=== PATIENT | male | born 1980 | race Caucasian/White ===

== ENCOUNTER 2019-06-21 21:44 | Emergency (ER) | payer BC ==
--- NOTE | 2019-06-22 | RAD ---
RIGHT WRIST THREE VIEWS: Date: 06-21-19 FINDINGS: No fracture was seen. The carpal bones appear normal. The distal radius and ulna appear intact. IMPRESSION: No acute finding. POS: HOME
== END 2019-06-21 22:55 | disposition home or self-care (01) ==
LOC: BURERS 21:44
DX: S63.501A Unspecified sprain of right wrist, initial encounter (principal); S29.012A Strain of muscle and tendon of back wall of thorax, initial encounter; F32.9 Major depressive disorder, single episode, unspecified; Z79.01 Long term (current) use of anticoagulants; Z79.899 Other long term (current) drug therapy; W19.XXXA Unspecified fall, initial encounter

== ENCOUNTER 2021-04-16 16:08 | Emergency (ER) | payer BC ==
[~2021-04-16 16:08] MED LIST: Iopamidol 370 76% 100 ML VIAL ONE
[2021-04-16] MEDS ORDERED: Morphine 4 MG/ML VIAL ONE (16:36)
[2021-04-16] MEDS ORDERED: Ondansetron PF 4 MG/2 ML Vial ONE (16:37)
[2021-04-16 16:38] LABS: #Basophils 0.1 thou/uL (0.0-0.2); #Eosinphils 0.1 thou/uL (0.0-0.7); #Lymphocytes 1.7 thou/uL (1.20-3.40); #Monocytes 0.8 thou/uL (0.11-0.59); #Neutrophils 8.9 thou/uL (1.40-6.50); %Basophils 0.7 % (0.0-1.0); %Eosinophils 0.7 % (0.0-10.0); %Lymphocytes 14.6 % (21.0-51.0); Hemoglobin 16.9 g/dL (14.0-18.0); Mean Corpuscular HGB CONC 32.8 g/dL (32.0-36.0); Mean Corpuscular Hemoglobin 29.3 pg (27.0-31.0); Mean Corpuscular Volume 89.2 fL (78.0-98.0); Mean Platelet Volume 7.8 fL (7.4-10.4); Platelet Count 265 thou/uL (130-400); RBC Distribution Width 12.7 % (11.5-14.5); Red Blood Cell (RBC) Count 5.78 mill/uL (4.70-6.10); White Blood Cell (WBC) Count 11.5 thou/uL (4.8-10.8)
[2021-04-16 16:45] LABS: INR-International Normal Ratio 3.2; Prothrombin Time 32.9 sec (12.0-14.7)
[2021-04-16 16:48] LABS: Bilirubin Small (Negative); Blood, Urine Large (Negative); Clarity Clear (Clear); Glucose, Urine (Dipstick) Negative (Negative); Ketone, Urine 15 mg/dL (Negative); Leukocyte Negative (Negative); Nitrite Negative (Negative); Protein, Urine (Dipstick) 100 mg/dL (Neg-Trace); Urobilinogen 0.2 mg/dL (Less than 2); pH, Urine 5.5 (5.0-9.0)
[2021-04-16 16:53] LABS: Specific Gravity, Urine 1.023 (1.002-1.036)
[2021-04-16 16:54] LABS: ALT (SGPT) 24 U/L (8-55); AST (SGOT) 15 U/L (5-34); Albumin 4.3 g/dL (3.5-5.0); Alkaline Phosphatase 104 U/L (40-110); Anion Gap 13 mmol/L (10-20); BUN (Urea Nitrogen) 10 mg/dL (8.9-20.6); Bilirubin, Total 0.8 mg/dL (0.2-1.2); Calc. Creatinine Clearance 0 mL/min (70-130); Calcium 9.5 mg/dL (7.8-10.44); Carbon Dioxide 31 mmol/L (22-29); Chloride 102 mmol/L (98-107); Globulin 3.5 g/dL (2.4-3.5); Glucose 119 mg/dL (70-105); Lipase 16 U/L (8-78); Potassium 4.1 mmol/L (3.5-5.1); Protein, Total 7.8 g/dL (6.0-8.3); Sodium 142 mmol/L (136-145)
[2021-04-16 17:15] LABS: Bacteria/HPF Rare-Few HPF (None Seen); Mucous/LPF 1+ LPF (<2+); RBC/HPF 21-50 HPF (0-3); WBC/HPF 0-3 HPF (0-3)
[2021-04-16] MEDS ORDERED: Ketorolac Tromethamine 30 MG/ML VIAL ONE (18:06)
== END 2021-04-16 18:18 | disposition short-term general hospital (02) ==
LOC: BURERS 16:08
DX: N50.89 Other specified disorders of the male genital organs (principal); R10.12 Left upper quadrant pain; R10.32 Left lower quadrant pain; R11.2 Nausea with vomiting, unspecified; Z86.73 Personal history of transient ischemic attack (TIA), and cerebral infarction without residual deficits; Z79.01 Long term (current) use of anticoagulants; Z79.899 Other long term (current) drug therapy
CPT/HCPCS: 74177; 80053; 81003; 81015; 83690; 85025; 85610; 96374; 96375; J1885; J2270; J2405; Q9967

== ENCOUNTER 2021-05-20 18:02 | Inpatient (IN) | payer BC ==
[2021-05-20] MEDS ORDERED: Acetaminophen 500 MG TAB ONE (18:44)
[2021-05-20] MEDS ORDERED: Morphine 4 MG/ML VIAL ONE (18:44)
[2021-05-20 19:09] LABS: ALT (SGPT) 24 U/L (8-55); AST (SGOT) 16 U/L (5-34); Alkaline Phosphatase 116 U/L (40-110); Anion Gap 17 mmol/L (10-20); BUN (Urea Nitrogen) 13 mg/dL (8.9-20.6); Bilirubin, Total 0.2 mg/dL (0.2-1.2); Calc. Creatinine Clearance 0 mL/min (70-130); Calcium 9.1 mg/dL (7.8-10.44); Carbon Dioxide 24 mmol/L (22-29); Chloride 101 mmol/L (98-107); Globulin 3.2 g/dL (2.4-3.5); Glucose 91 mg/dL (70-105); Potassium 3.9 mmol/L (3.5-5.1); Protein, Total 7.2 g/dL (6.0-8.3); Sodium 138 mmol/L (136-145)
[2021-05-20 19:25] LABS: Hemoglobin 14.7 g/dL (14.0-18.0); Mean Corpuscular HGB CONC 32.8 g/dL (32.0-36.0); Mean Corpuscular Hemoglobin 29.6 pg (27.0-31.0); Mean Corpuscular Volume 90.3 fL (78.0-98.0); Mean Platelet Volume 7.5 fL (7.4-10.4); Platelet Count 273 thou/uL (130-400); RBC Distribution Width 12.9 % (11.5-14.5); Red Blood Cell (RBC) Count 4.96 mill/uL (4.70-6.10)
[2021-05-20 19:52] LABS: Band 7 % (5-11); Eosinophils 1 % (0-10); Lymphocytes 11 % (21-51); MDiff Complete? YES; Monocytes 6 % (0-10); Neutrophil 74 % (42-75); Platelet Morphology Comment Appears Adequate; RBC Morphology Normal
[2021-05-20 20:26] VITALS: BMI 30.4
[2021-05-20] MEDS ORDERED: Morphine 4 MG/ML VIAL SLOW IVP PRN ×2 (20:54→21:37)
[2021-05-20] MEDS ORDERED: Piperacillin/Tazobactam 3.375 GM in Sodium Chloride 0.9% 100 ML IVPB SCH (21:00)
[2021-05-20] MEDS ORDERED: Sodium Chloride 0.9% 1,000 ML IV SCH (21:00)
[2021-05-20] MEDS ORDERED: Ondansetron ODT 4 MG TAB PO PRN (21:39)
[2021-05-20] MEDS ORDERED: Acetaminophen 325 MG TAB PO PRN (21:39)
[2021-05-20] MEDS: Sodium Chloride 0.9% 1,000 ML IV SCH (21:45)
[2021-05-20] MEDS: Piperacillin/Tazobactam 3.375 GM in Sodium Chloride 0.9% 100 ML IVPB SCH (21:51)
[2021-05-20 22:05] LABS: Lactic Acid 0.7 mmol/L (0.5-2.2)
[2021-05-21] MEDS: Vancomycin HCl 750 MG in Sodium Chloride 0.9% 250 ML 250 ML IVPB SCH ×4 (02:14→15:10)
[2021-05-21] MEDS: Sodium Chloride 0.9% 1,000 ML IV SCH (03:28)
[2021-05-21 04:00] LABS: SARS-CoV-2 NAA Rapid Test Not Detected (NotDetected)
[2021-05-21] MEDS: Piperacillin/Tazobactam 3.375 GM in Sodium Chloride 0.9% 100 ML IVPB SCH ×2 (05:48→17:12)
[2021-05-21] MEDS ORDERED: Piperacillin/Tazobactam 3.375 GM in Sodium Chloride 0.9% 100 ML IVPB SCH (06:00)
[2021-05-21] MEDS ORDERED: Vancomycin HCl 1 GM in Sodium Chloride 0.9% 250 ML 250 ML IVPB SCH (06:00)
[2021-05-21 08:08] LABS: Prothrombin Time 47.3 sec (12.0-14.7)
[2021-05-21 08:25] LABS: INR-International Normal Ratio 5.1
[2021-05-21] MEDS ORDERED: Warfarin Sodium 3.75 MG HALF.TAB PO SCH (09:00)
[2021-05-21] MEDS: Gabapentin 300 MG CAP PO SCH ×2 (09:18→21:04)
[2021-05-21] MEDS: HYDROcodone/Acetaminophen 5/325 mg Tablet PO PRN ×3 (09:21→21:06)
[2021-05-22] MEDS: Piperacillin/Tazobactam 3.375 GM in Sodium Chloride 0.9% 100 ML IVPB SCH ×4 (00:25→23:05)
[2021-05-22] MEDS: HYDROcodone/Acetaminophen 5/325 mg Tablet PO PRN ×3 (02:16→23:13)
[2021-05-22] MEDS: Vancomycin HCl 750 MG in Sodium Chloride 0.9% 250 ML 250 ML IVPB SCH ×4 (02:17→16:11)
[2021-05-22 05:49] LABS: #Basophils 0.1 thou/uL (0.0-0.2); #Eosinphils 0.3 thou/uL (0.0-0.7); #Lymphocytes 1.7 thou/uL (1.20-3.40); #Monocytes 0.5 thou/uL (0.11-0.59); #Neutrophils 4.8 thou/uL (1.40-6.50); %Basophils 0.9 % (0.0-1.0); %Eosinophils 3.5 % (0.0-10.0); %Lymphocytes 23.7 % (21.0-51.0); %Monocytes 7.1 % (0.0-10.0); %Neutrophils 64.8 % (42.0-75.0); Hemoglobin 13.1 g/dL (14.0-18.0); Mean Corpuscular HGB CONC 33.4 g/dL (32.0-36.0); Mean Corpuscular Hemoglobin 29.9 pg (27.0-31.0); Mean Corpuscular Volume 89.4 fL (78.0-98.0); Mean Platelet Volume 7.2 fL (7.4-10.4); Platelet Count 247 thou/uL (130-400); RBC Distribution Width 12.8 % (11.5-14.5); Red Blood Cell (RBC) Count 4.37 mill/uL (4.70-6.10); White Blood Cell (WBC) Count 7.3 thou/uL (4.8-10.8)
[2021-05-22 05:58] LABS: Anion Gap 9 mmol/L (10-20); BUN (Urea Nitrogen) 8 mg/dL (8.9-20.6); Calc. Creatinine Clearance 149 mL/min (70-130); Calcium 8.8 mg/dL (7.8-10.44); Carbon Dioxide 26 mmol/L (22-29); Chloride 109 mmol/L (98-107); Glucose 121 mg/dL (70-105); Potassium 3.9 mmol/L (3.5-5.1); Sodium 140 mmol/L (136-145)
[2021-05-22] MEDS: Gabapentin 300 MG CAP PO SCH ×2 (08:29→20:43)
[2021-05-22 13:16] LABS: Vancomycin, Trough 14.4 ug/mL
[2021-05-22] MEDS: Morphine 4 MG/ML VIAL SLOW IVP SCH (13:32)
[2021-05-23] MEDS: Vancomycin HCl 750 MG in Sodium Chloride 0.9% 250 ML 250 ML IVPB SCH ×2 (02:11)
[2021-05-23] MEDS: HYDROcodone/Acetaminophen 5/325 mg Tablet PO PRN ×2 (03:49→15:47)
[2021-05-23 05:12] LABS: INR-International Normal Ratio 2.1; Prothrombin Time 23.4 sec (12.0-14.7)
[2021-05-23] MEDS: Piperacillin/Tazobactam 3.375 GM in Sodium Chloride 0.9% 100 ML IVPB SCH ×2 (08:10→16:11)
[2021-05-23] MEDS: Gabapentin 300 MG CAP PO SCH ×2 (08:16→20:40)
[2021-05-23] MEDS: Morphine 4 MG/ML VIAL SLOW IVP SCH (15:45)
[2021-05-23] MEDS ORDERED: Warfarin Sodium 5 MG TAB PO SCH (17:00)
[2021-05-24] MEDS: Piperacillin/Tazobactam 3.375 GM in Sodium Chloride 0.9% 100 ML IVPB SCH ×2 (00:29→09:17)
[2021-05-24 04:53] LABS: INR-International Normal Ratio 1.5; Prothrombin Time 18.5 sec (12.0-14.7)
[2021-05-24 06:01] VITALS: BP 115/75; TEMP 98.4
[2021-05-24] MEDS ORDERED: Warfarin Sodium 5 MG TAB PO SCH (07:15)
[2021-05-24] MEDS: Gabapentin 300 MG CAP PO SCH (09:16)
== END 2021-05-24 12:00 | disposition home or self-care (01) | DRG 581 ==
LOC: BURERS 18:02 → BURMED 19:35
PROVIDERS: ADMIT Family Medicine; ATTEND Family Medicine
PROC: 0J9L0ZZ Drainage of Right Upper Leg Subcutaneous Tissue and Fascia, Open Approach (ICD-10-PCS; principal; 2021-05-20)
DX: L03.115 Cellulitis of right lower limb (principal); J45.909 Unspecified asthma, uncomplicated; L02.415 Cutaneous abscess of right lower limb; F32.9 Major depressive disorder, single episode, unspecified; F41.9 Anxiety disorder, unspecified; G89.29 Other chronic pain; M54.9 Dorsalgia, unspecified; Z86.73 Personal history of transient ischemic attack (TIA), and cerebral infarction without residual deficits; Z90.49 Acquired absence of other specified parts of digestive tract; Z79.01 Long term (current) use of anticoagulants; Z86.718 Personal history of other venous thrombosis and embolism; Z87.891 Personal history of nicotine dependence; Z79.899 Other long term (current) drug therapy
CPT/HCPCS: 36415; 80048; 80053; 80202; 83605; 85025; 85610; 87040; 87070; 87077; 87186; 87205; J2270; J2543; J3370; J3490; J7050; U0002